=== PATIENT | female | born 1935 | race Caucasian/White ===

== ENCOUNTER 2017-04-19 03:07 | Inpatient (IN) | payer MEDICARE ==
[2017-04-19] MEDS: ALBUTEROL 0.083% (NEB) 2.5 MG/3 ML AMP INH (03:32)
[2017-04-19] MEDS: IPRATROPIUM (NEB) 0.5 MG/2.5 ML AMP INH (03:32)
[2017-04-19 04:22] LABS: ADD MAN DIFF? NO
[2017-04-19 04:35] LABS: WHITE BLOOD COUNT 12.5 10^3/ul (4.8-10.8)
[2017-04-19 04:35] LABS: BASOPHILS % 0.2 % (0.0-2.0); EOSINOPHILS # 0.2 10^3/ul (0.0-0.5); EOSINOPHILS % 1.4 % (0.0-7.0); HEMATOCRIT 38.7 % (37.0-47.0); HEMOGLOBIN 12.8 g/dl (12.0-16.0); LYMPHOCYTES % 8.2 % (15.0-51.0); MEAN CORPUSCULAR HEMOGLOBIN 28.1 pg (29.0-33.0); MEAN CORPUSCULAR HGB CONC 33.1 g/dl (32.0-37.0); MEAN CORPUSCULAR VOLUME 84.9 fl (82.0-101.0); MEAN PLATELET VOLUME 11.7 fl (7.4-10.4); MONOCYTE # 0.8 10^3/ul (0.3-0.9); MONOCYTES % 6.2 % (0.0-11.0); NEUTROPHIL # 10.4 10^3/ul (1.6-7.5); NEUTROPHILS % 83.6 % (39.0-77.0); PLATELET COUNT 173 10^3/UL (140-415); RED BLOOD COUNT 4.56 10^6/ul (4.20-5.40); RED CELL DISTRIBUTION WIDTH 13.7 % (11.5-14.5)
[2017-04-19 04:43] LABS: INR 0.94; PARTIAL THROMBOPLASTIN TIME 28.8 Sec (25.0-35.0); PROTIME 12.7 Sec (11.9-14.9)
[2017-04-19 04:52] LABS: ALANINE AMINOTRANSFERASE 25 IU/L (13-69); ALBUMIN 4.2 g/dl (3.3-4.9); ALBUMIN/GLOBULIN RATIO 1.35; ALKALINE PHOSPHATASE 98 IU/L (42-121); ANION GAP 14 (8-16); ASPARTATE AMINO TRANSFERASE 29 IU/L (15-46); BILIRUBIN,INDIRECT 0.6 mg/dl (0-1.1); BILIRUBIN,TOTAL 0.6 mg/dl (0.2-1.3); BLOOD UREA NITROGEN 12 mg/dl (7-20); CALCIUM 9.1 mg/dl (8.4-10.2); CARBON DIOXIDE 26 mmol/L (21-31); CHLORIDE 105 mmol/L (97-110); CREATININE 0.79 mg/dl (0.44-1.00); GLUCOSE 222 mg/dl (70-220); POTASSIUM 3.1 mmol/L (3.5-5.1); SODIUM 142 mmol/L (135-144); TOTAL PROTEIN 7.3 g/dl (6.1-8.1)
[2017-04-19 05:03] LABS: B-TYPE NATRIURETIC PEPTIDE 546 PG/ML (0-450); TROPONIN-I < 0.012 ng/ml (0.00-0.12)
[2017-04-19 05:04] LABS: LACTIC ACID 2.8 mmol/L (0.5-2.0)
[2017-04-19] MEDS: SODIUM CHLORIDE 0.9% 1L BAG IV* (05:32)
[2017-04-19] MEDS: CEFEPIME 2GM/50 ML (PMX) 50 ML IVPB ×2 (05:39→15:42)
[2017-04-19] MEDS: VANCOMYCIN 1 GM (PMX) 250 ML IVPB (05:54)
[2017-04-19] MEDS: SOD CHLORIDE 0.9% 1,000 ML IV ×3 (05:54→22:39)
[2017-04-19] MEDS: POTASSIUM CHLORIDE 20 MEQ POWDER FOR ORAL SOLN PO (05:54)
[2017-04-19 07:15] LABS: LACTIC ACID 3.8 mmol/L (0.5-2.0)
[2017-04-19] MEDS ORDERED: ACETAMINOPHEN 325 MG TAB PO (07:30)
[2017-04-19] MEDS ORDERED: morphine 2 MG INJ IV (07:30)
[2017-04-19] MEDS ORDERED: ONDANSETRON 4 MG INJ IV (07:30)
[2017-04-19] MEDS ORDERED: ALBUTEROL/IPRATROPIUM (NEB) 3 ML AMP HHN (07:30)
[2017-04-19] MEDS ORDERED: NACL 0.9% 3 ML SYG IV (07:30)
[2017-04-19 07:54] LABS: AADO2 Arterial 74.7 mmHg (7.0-24.0); Arterial Base Excess 1.7 mmol/L (-3.0-3); Arterial Blood Gas Oxygen Sat 94.2 mmHG (95.0-100.0); Arterial COHb 0.3 % (0.0-3.0); Arterial Fraction of Oxyhgb 93.6 % (93.0-99.0); Arterial HCO3 26.3 mmol/L (22.0-26.0); Arterial MetHb 0.3 % (0.0-1.5); Arterial Total Hemglobin 13.2 g/dl (12.0-18.0); Arterial pCO2 41.1 mmhg (35-45); MODE NASAL CANNULA; Site LB
[2017-04-19] MEDS: SOD CHLORIDE 0.9% 250 ML IV (08:33)
[2017-04-19] MEDS: METHYLPREDNISOLONE 40 MG INJ IV ×2 (08:52→22:37)
[2017-04-19] MEDS: HEPARIN 5,000 UNIT/0.5 ML VIAL SC ×2 (08:56→22:40)
[2017-04-19] MEDS: LEVOFLOXACIN 500MG/D5W (PMX) 100 ML IVPB (08:57)
[2017-04-19] MEDS: SALMETEROL/FLUTICASONE 250/50 INHA INH ×2 (08:57→22:35)
[2017-04-19] MEDS: BUSPIRONE 10 MG TAB PO ×2 (09:27→22:34)
[2017-04-19] MEDS: IPRATROPIUM (NEB) 0.5 MG/2.5 ML AMP HHN (10:37)
[2017-04-19] MEDS: LEVALBUTEROL (NEB) 0.63 MG/3 ML AMP HHN (10:38)
[2017-04-19 14:57] LABS: LACTIC ACID 5.7 mmol/L (0.5-2.0)
[2017-04-19] MEDS: SOD CHLORIDE 0.9% 1,690 ML IV (15:24)
[2017-04-19] MEDS ORDERED: VANCOMYCIN IV PER PHARMACY XX (15:30)
[2017-04-19] MEDS ORDERED: CEFEPIME 2GM/50 ML (PMX) 50 ML IVPB (15:30)
[2017-04-19 19:33] LABS: ADD UMIC YES; UR ASCORBIC ACID NEGATIVE (NEGATIVE); UR BACTERIA FEW /HPF (NONE SEEN); UR BILIRUBIN (Dip) NEGATIVE (NEGATIVE); UR BLOOD (Dip) NEGATIVE (NEGATIVE); UR CLARITY SLIGHTLY CLOUDY (CLEAR); UR COLOR YELLOW (YELLOW); UR GLUCOSE (Dip) NEGATIVE (NEGATIVE); UR KETONES (Dip) NEGATIVE (NEGATIVE); UR LEUKOCYTE ESTERASE (Dip) 3+ Leu/ul (NEGATIVE); UR MUCUS FEW /HPF (NONE SEEN); UR NITRITE (Dip) NEGATIVE (NEGATIVE); UR RBC 4 /HPF (0-5); UR SPECIFIC GRAVITY (Dip) 1.015 (1.003-1.030); UR SQUAMOUS EPITHELIAL CELL FEW /HPF (FEW); UR TOTAL PROTEIN (Dip) NEGATIVE (NEGATIVE); UR UROBILINOGEN (Dip) NEGATIVE (NEGATIVE); UR WBC 6 /HPF (0-5)
[2017-04-19 20:23] LABS: LACTIC ACID 2.1 mmol/L (0.5-2.0)
[2017-04-19] MEDS: ATORVASTATIN 10 MG TAB PO (22:35)
[2017-04-20] MEDS: CEFEPIME 2GM/50 ML (PMX) 50 ML IVPB ×2 (03:15→18:14)
[2017-04-20 05:41] LABS: ADD MAN DIFF? NO
[2017-04-20 06:05] LABS: ABNORMAL IP MESSAGE 1; BASOPHILS % 0.1 % (0.0-2.0); HEMATOCRIT 32.1 % (37.0-47.0); HEMOGLOBIN 10.4 g/dl (12.0-16.0); LYMPHOCYTES # 0.4 10^3/ul (0.8-2.9); MEAN CORPUSCULAR HGB CONC 32.4 g/dl (32.0-37.0); MEAN CORPUSCULAR VOLUME 86.5 fl (82.0-101.0); MEAN PLATELET VOLUME 11.1 fl (7.4-10.4); MONOCYTE # 0.2 10^3/ul (0.3-0.9); MONOCYTES % 1.7 % (0.0-11.0); NEUTROPHIL # 8.7 10^3/ul (1.6-7.5); NEUTROPHILS % 93.6 % (39.0-77.0); PLATELET COUNT 166 10^3/UL (140-415); RED BLOOD COUNT 3.71 10^6/ul (4.20-5.40); RED CELL DISTRIBUTION WIDTH 14.6 % (11.5-14.5)
[2017-04-20 06:05] LABS: WHITE BLOOD COUNT 9.3 10^3/ul (4.8-10.8)
[2017-04-20 06:09] LABS: POSITIVE DIFF @See below
[2017-04-20 06:50] LABS: ALANINE AMINOTRANSFERASE 19 IU/L (13-69); ALBUMIN 3.2 g/dl (3.3-4.9); ALBUMIN/GLOBULIN RATIO 1.03; ALKALINE PHOSPHATASE 60 IU/L (42-121); ANION GAP 12 (8-16); ASPARTATE AMINO TRANSFERASE 21 IU/L (15-46); BILIRUBIN,INDIRECT 0.3 mg/dl (0-1.1); BILIRUBIN,TOTAL 0.3 mg/dl (0.2-1.3); BLOOD UREA NITROGEN 11 mg/dl (7-20); CALCIUM 8.8 mg/dl (8.4-10.2); CARBON DIOXIDE 23 mmol/L (21-31); CHLORIDE 113 mmol/L (97-110); CREATININE 0.66 mg/dl (0.44-1.00); GLUCOSE 147 mg/dl (70-220); MAGNESIUM 2.1 mg/dl (1.7-2.5); PHOSPHORUS 3.8 mg/dl (2.5-4.9); SODIUM 144 mmol/L (135-144); TOTAL PROTEIN 6.3 g/dl (6.1-8.1)
[2017-04-20] MEDS: LEVALBUTEROL (NEB) 0.63 MG/3 ML AMP HHN (09:25)
[2017-04-20] MEDS: IPRATROPIUM (NEB) 0.5 MG/2.5 ML AMP HHN (09:25)
[2017-04-20 09:58] LABS: HEMOGLOBIN A1C 5.7 % (0-5.9)
[2017-04-20] MEDS: SALMETEROL/FLUTICASONE 250/50 INHA INH ×2 (10:08→22:13)
[2017-04-20] MEDS: METHYLPREDNISOLONE 40 MG INJ IV ×2 (10:08→21:43)
[2017-04-20] MEDS: BUSPIRONE 10 MG TAB PO ×2 (10:09→21:39)
[2017-04-20] MEDS: HEPARIN 5,000 UNIT/0.5 ML VIAL SC ×2 (10:15→21:41)
[2017-04-20] MEDS: LEVOFLOXACIN 500MG/D5W (PMX) 100 ML IVPB (10:26)
[2017-04-20] MEDS: SOD CHLORIDE 0.9% 1,000 ML IV ×2 (10:30→18:14)
[2017-04-20 11:51] LABS: LACTIC ACID 1.1 mmol/L (0.5-2.0)
[2017-04-20] MEDS: VANCOMYCIN 1 GM 250 ML IVPB (13:35)
[2017-04-20] MEDS ORDERED: VANCOMYCIN 1.25 GM in SOD CHLORIDE 0.9% 250 ML IVPB (17:00)
[2017-04-20] MEDS: ATORVASTATIN 10 MG TAB PO (21:40)
[2017-04-20] MEDS: DOXYCYCLINE 100 MG TAB PO (21:43)
[2017-04-21] MEDS: SOD CHLORIDE 0.9% 1,000 ML IV (04:31)
[2017-04-21] MEDS: CEFEPIME 2GM/50 ML (PMX) 50 ML IVPB ×2 (04:32→16:53)
[2017-04-21 06:19] LABS: ADD MAN DIFF? NO
[2017-04-21 06:37] LABS: ABNORMAL IP MESSAGE 1; BASOPHILS % 0.1 % (0.0-2.0); HEMATOCRIT 32.8 % (37.0-47.0); HEMOGLOBIN 10.9 g/dl (12.0-16.0); LYMPHOCYTES # 0.5 10^3/ul (0.8-2.9); LYMPHOCYTES % 4.1 % (15.0-51.0); MEAN CORPUSCULAR HEMOGLOBIN 28.3 pg (29.0-33.0); MEAN CORPUSCULAR HGB CONC 33.2 g/dl (32.0-37.0); MEAN CORPUSCULAR VOLUME 85.2 fl (82.0-101.0); MEAN PLATELET VOLUME 11.3 fl (7.4-10.4); MONOCYTE # 0.3 10^3/ul (0.3-0.9); MONOCYTES % 2.2 % (0.0-11.0); NEUTROPHIL # 11.2 10^3/ul (1.6-7.5); NEUTROPHILS % 92.9 % (39.0-77.0); PLATELET COUNT 201 10^3/UL (140-415); RED BLOOD COUNT 3.85 10^6/ul (4.20-5.40); RED CELL DISTRIBUTION WIDTH 14.6 % (11.5-14.5)
[2017-04-21 06:37] LABS: WHITE BLOOD COUNT 12.1 10^3/ul (4.8-10.8)
[2017-04-21 06:56] LABS: POSITIVE DIFF @See below
[2017-04-21 07:26] LABS: ANION GAP 11 (8-16); BLOOD UREA NITROGEN 17 mg/dl (7-20); CARBON DIOXIDE 24 mmol/L (21-31); CHLORIDE 112 mmol/L (97-110); CREATININE 0.72 mg/dl (0.44-1.00); GLUCOSE 139 mg/dl (70-220); POTASSIUM 3.9 mmol/L (3.5-5.1); SODIUM 143 mmol/L (135-144)
[2017-04-21] MEDS: SALMETEROL/FLUTICASONE 250/50 INHA INH (09:03)
[2017-04-21] MEDS: BUSPIRONE 10 MG TAB PO (09:03)
[2017-04-21] MEDS: DOXYCYCLINE 100 MG TAB PO (09:03)
[2017-04-21] MEDS: METHYLPREDNISOLONE 40 MG INJ IV (09:04)
[2017-04-21] MEDS: HEPARIN 5,000 UNIT/0.5 ML VIAL SC (09:12)
== END 2017-04-21 19:30 | disposition home or self-care (01) | DRG 191 ==
LOC: E/R 03:07 → PP2 04-20 18:03 → MS3 05:45
DX: J44.0 Chronic obstructive pulmonary disease with (acute) lower respiratory infection (principal); J45.901 Unspecified asthma with (acute) exacerbation; E87.2 Acidosis; R65.10 Systemic inflammatory response syndrome (SIRS) of non-infectious origin without acute organ dysfunction; J44.1 Chronic obstructive pulmonary disease with (acute) exacerbation; J20.9 Acute bronchitis, unspecified; E78.5 Hyperlipidemia, unspecified; E87.6 Hypokalemia; M19.90 Unspecified osteoarthritis, unspecified site
CPT/HCPCS: 36415; 36600; 71045; 71250; 80048; 80053; 81001; 82803; 83036; 83605; 83735; 83880; 84100; 84484; 85025; 85610; 85730; 87040; 87086; 87400; 93005; 93306; 94640; 94644; 94664; 96372; 96374; 96375; 99291-25

== ENCOUNTER 2017-05-07 08:41 | Emergency (ER) | payer MEDICARE ==
[2017-05-07 10:04] LABS: ADD MAN DIFF? NO
[2017-05-07 10:12] LABS: BASOPHILS % 0.2 % (0.0-2.0); EOSINOPHILS # 0.1 10^3/ul (0.0-0.5); EOSINOPHILS % 1.2 % (0.0-7.0); HEMATOCRIT 38.2 % (37.0-47.0); HEMOGLOBIN 12.7 g/dl (12.0-16.0); LYMPHOCYTES # 0.8 10^3/ul (0.8-2.9); LYMPHOCYTES % 12.6 % (15.0-51.0); MEAN CORPUSCULAR HEMOGLOBIN 28.5 pg (29.0-33.0); MEAN CORPUSCULAR HGB CONC 33.2 g/dl (32.0-37.0); MEAN CORPUSCULAR VOLUME 85.8 fl (82.0-101.0); MEAN PLATELET VOLUME 11.3 fl (7.4-10.4); MONOCYTE # 0.5 10^3/ul (0.3-0.9); MONOCYTES % 8.1 % (0.0-11.0); NEUTROPHIL # 4.7 10^3/ul (1.6-7.5); NEUTROPHILS % 77.6 % (39.0-77.0); PLATELET COUNT 165 10^3/UL (140-415); RED BLOOD COUNT 4.45 10^6/ul (4.20-5.40); RED CELL DISTRIBUTION WIDTH 13.9 % (11.5-14.5)
[2017-05-07 10:39] LABS: ALANINE AMINOTRANSFERASE 25 IU/L (13-69); ALBUMIN/GLOBULIN RATIO 1.29; ALKALINE PHOSPHATASE 70 IU/L (42-121); ANION GAP 16 (8-16); ASPARTATE AMINO TRANSFERASE 27 IU/L (15-46); BILIRUBIN,INDIRECT 1.1 mg/dl (0-1.1); BILIRUBIN,TOTAL 1.1 mg/dl (0.2-1.3); BLOOD UREA NITROGEN 10 mg/dl (7-20); CALCIUM 9.5 mg/dl (8.4-10.2); CARBON DIOXIDE 30 mmol/L (21-31); CHLORIDE 105 mmol/L (97-110); CREATININE 0.72 mg/dl (0.44-1.00); GLUCOSE 110 mg/dl (70-220); POTASSIUM 3.7 mmol/L (3.5-5.1); SODIUM 147 mmol/L (135-144); TOTAL PROTEIN 7.1 g/dl (6.1-8.1)
[2017-05-07 10:41] LABS: LIPASE 325 U/L (23-300)
[2017-05-07 12:13] LABS: ADD UMIC NO; UR ASCORBIC ACID NEGATIVE (NEGATIVE); UR BILIRUBIN (Dip) NEGATIVE (NEGATIVE); UR BLOOD (Dip) NEGATIVE (NEGATIVE); UR CLARITY CLEAR (CLEAR); UR COLOR STRAW (YELLOW); UR GLUCOSE (Dip) NEGATIVE (NEGATIVE); UR KETONES (Dip) TRACE mg/dL (NEGATIVE); UR LEUKOCYTE ESTERASE (Dip) NEGATIVE Leu/ul (NEGATIVE); UR NITRITE (Dip) NEGATIVE (NEGATIVE); UR SPECIFIC GRAVITY (Dip) 1.003 (1.003-1.030); UR TOTAL PROTEIN (Dip) NEGATIVE (NEGATIVE); UR UROBILINOGEN (Dip) NEGATIVE (NEGATIVE)
== END 2017-05-07 13:57 | disposition home or self-care (01) ==
LOC: E/R 08:41
DX: R68.83 Chills (without fever) (principal); F41.9 Anxiety disorder, unspecified; J44.9 Chronic obstructive pulmonary disease, unspecified
CPT/HCPCS: 36415; 71045; 80053; 81003; 83690; 85025; 99284-25

== ENCOUNTER 2018-04-06 20:50 | Emergency (ER) | payer MEDICARE, OTHER | END 2018-04-07 02:15 | disposition home or self-care (01) | LOC: E/R 20:50 | DX: S05.11XA Contusion of eyeball and orbital tissues, right eye, initial encounter (principal); J44.9 Chronic obstructive pulmonary disease, unspecified; K02.9 Dental caries, unspecified; S40.011A Contusion of right shoulder, initial encounter; S80.02XA Contusion of left knee, initial encounter; S60.222A Contusion of left hand, initial encounter; W01.198A Fall on same level from slipping, tripping and stumbling with subsequent striking against other object, initial encounter; Y92.9 Unspecified place or not applicable | CPT/HCPCS: 70450; 70486; 99284-25 ==